=== PATIENT | female | born 1955 | race Caucasian/White ===

== ENCOUNTER 2018-06-15 08:12 | Emergency (ER) | payer SELFPAY ==
[2018-06-15 08:43] LABS: #Basophils 0.1 thou/uL (0.0-0.2); #Eosinphils 0.2 thou/uL (0.0-0.7); #Lymphocytes 1.2 thou/uL (1.20-3.40); #Monocytes 0.4 thou/uL (0.11-0.59); #Neutrophils 2.5 thou/uL (1.40-6.50); %Basophils 1.3 % (0.0-1.0); %Eosinophils 4.3 % (0.0-10.0); %Monocytes 8.3 % (0.0-10.0); %Neutrophils 58.1 % (42.0-75.0); Hemoglobin 13.4 g/dL (12.0-16.0); Mean Corpuscular HGB CONC 33.7 g/dL (32.0-36.0); Mean Corpuscular Hemoglobin 33.8 pg (27.0-31.0); Mean Platelet Volume 6.7 fL (7.4-10.4); Platelet Count 217 thou/uL (130-400); RBC Distribution Width 11.3 % (11.5-14.5); Red Blood Cell (RBC) Count 3.96 mill/uL (4.20-5.40); White Blood Cell (WBC) Count 4.3 thou/uL (4.8-10.8)
[2018-06-15 08:58] LABS: BHCG - Serum Negative (NEGATIVE); Pregs Control Background? CLEAR/WHITE (CLR/WHITE); Pregs Control Bar Appear? YES (CONTROL BAR)
[2018-06-15 09:19] LABS: AST (SGOT) 17 U/L (5-34); Alcohol Less than 10 mg/dL (Less than 10); Anion Gap 9 mmol/L (10-20); Bilirubin, Total 0.4 mg/dL (0.2-1.2); Calc. Creatinine Clearance 0 mL/min (70-130); Calcium 8.8 mg/dL (7.8-10.44); Carbon Dioxide 33 mmol/L (23-31); Chloride 104 mmol/L (98-107); Estimated GFR-MDRD 58; Potassium 3.3 mmol/L (3.5-5.1); Protein, Total 5.9 g/dL (6.0-8.3); Sodium 143 mmol/L (136-145)
[2018-06-15 09:42] LABS: ALT (SGPT) 9 U/L (8-55); Acetaminophen Less than 6.0 mcg/mL (10.0-30.0); Albumin 3.6 g/dL (3.4-4.8); Alkaline Phosphatase 95 U/L (40-150); BUN (Urea Nitrogen) 26 mg/dL (9.8-20.1); Globulin 2.5 g/dL (2.4-3.5); Glucose 78 mg/dL (80-115); Salicylate Less than 8.0 mg/dL (15.0-30.0)
[2018-06-15 10:19] LABS: CK (CPK) 110 U/L (29-168)
[2018-06-15 14:08] LABS: Bilirubin Negative (Negative); Blood, Urine Negative (Negative); Clarity CLOUDY (Clear); Glucose, Urine (Dipstick) Negative (Negative); Leukocyte Moderate (Negative); Nitrite Negative (Negative); Protein, Urine (Dipstick) Negative (Neg-Trace); Specific Gravity, Urine 1.012 (1.002-1.036); Urobilinogen 0.2 mg/dL (0.2-1.0)
[2018-06-15 14:10] LABS: Bacteria/HPF 4+ HPF (None Seen); Hyaline Casts/LPF 0-3 HYALINE CAST LPF (0-3 Hyaline); Pathc Cast-AUWi Flag 0.13 (0-2.49); RBC/HPF 0-3 HPF (0-3); Squamous Epithelial 0-3 HPF (0-3); WBC/HPF 21-50 HPF (0-3)
[2018-06-15 14:20] LABS: Pregnancy Test - Urine (BHCG) Negative (Negative); Specific Gravity 1.012 (1.002-1.036)
[2018-06-15 14:21] LABS: Pregu Control Background? CLEAR/WHITE (CLR/WHITE); Pregu Control Bar Appear? YES (CONTROL BAR)
[2018-06-15 14:22] LABS: Cocaine Metabolite Screen Not Detected (NotDetected); Medtox Reader # READER 1; Methamphetamine Not Detected (NotDetected); Phencyclidine (PCP) Not Detected (NotDetected); THC/Cannabinoid Screen Not Detected (NotDetected)
[2018-06-15 14:23] LABS: Amphetamine Detected (NotDetected); Barbiturates Screen Not Detected (NotDetected); Benzodiazepine Screen Detected (NotDetected); Methadone Not Detected (NotDetected); Opiate Screen Not Detected (NotDetected); Oxycodone Screen Not Detected (NotDetected); Tricyclic Screen Not Detected (NotDetected)
[2018-06-15 14:24] LABS: Medtox Control Line Valid? VALID (VALID)
[2018-06-15] MEDS ORDERED: Cephalexin 250 MG CAP ONE (17:07)
== END 2018-06-15 20:23 ==
LOC: ERS 08:12
DX: T42.4X2A Poisoning by benzodiazepines, intentional self-harm, initial encounter (principal); F32.9 Major depressive disorder, single episode, unspecified; N39.0 Urinary tract infection, site not specified; F41.9 Anxiety disorder, unspecified
CPT/HCPCS: 36415; 80053; 80306; 80307; 81003; 81015; 81025; 82550; 84443; 84703; 85025; 87077; 87086; 87186; 93005

== ENCOUNTER 2022-02-03 16:44 | Emergency (ER) | payer MEDICARE, SELFPAY ==
[2022-02-03 17:20] LABS: #Lymphocytes 1.7 thou/uL (1.20-3.40); #Monocytes 0.5 thou/uL (0.11-0.59); #Neutrophils 7.6 thou/uL (1.40-6.50); %Basophils 0.1 % (0.0-1.0); %Eosinophils 0.5 % (0.0-10.0); %Lymphocytes 16.8 % (21.0-51.0); %Monocytes 5.2 % (0.0-10.0); %Neutrophils 77.4 % (42.0-75.0); Mean Corpuscular HGB CONC 34.4 g/dL (32.0-36.0); Mean Corpuscular Hemoglobin 35.2 pg (27.0-31.0); Mean Platelet Volume 6.2 fL (7.4-10.4); Platelet Count 351 10x3/uL (130-400); RBC Distribution Width 12.8 % (11.5-14.5); White Blood Cell (WBC) Count 9.8 10x3/uL (4.8-10.8)
[2022-02-03 17:37] LABS: ALT (SGPT) 14 U/L (8-55); AST (SGOT) 27 U/L (5-34); Albumin 3.7 g/dL (3.4-4.8); Alkaline Phosphatase 118 U/L (40-110); Anion Gap 15 mmol/L (10-20); BUN (Urea Nitrogen) 32 mg/dL (9.8-20.1); Bilirubin, Total 0.2 mg/dL (0.2-1.2); CK (CPK) 340 U/L (29-168); Calc. Creatinine Clearance 0 mL/min (70-130); Calcium 9.1 mg/dL (7.8-10.44); Carbon Dioxide 21 mmol/L (23-31); Chloride 112 mmol/L (98-107); Estimated GFR 64; Globulin 2.4 g/dL (2.4-3.5); Glucose 131 mg/dL (80-115); Potassium 2.9 mmol/L (3.5-5.1); Protein, Total 6.1 g/dL (5.8-8.1); Sodium 145 mmol/L (136-145)
[2022-02-03] MEDS ORDERED: Potassium Chloride 20 MEQ TAB ONE (20:16)
== END 2022-02-03 21:02 | disposition home or self-care (01) ==
LOC: ERS 16:44
DX: R06.00 Dyspnea, unspecified (principal); I10 Essential (primary) hypertension; E03.9 Hypothyroidism, unspecified
CPT/HCPCS: 36415; 71045; 80053; 82550; 84484; 85025; 93005